=== PATIENT | male | born 1970 | race Caucasian/White ===

== ENCOUNTER 2019-01-09 15:10 | Emergency (ER) | payer BC, OTHER ==
[~2019-01-09] VITALS: Ht 180.3 cm; Wt 97.5 kg
[2019-01-09] MEDS ORDERED: OTEZLA30 MG PO (16:34)
[2019-01-09] MEDS ORDERED: PREDNISONE 20 M20 MG PO (17:29)
[2019-01-09 19:05] VITALS: BP 118/70
== END 2019-01-09 19:05 | disposition home or self-care (01) ==
LOC: ER 15:10
DX: R11.0 Nausea (principal); T78.1XXA Other adverse food reactions, not elsewhere classified, initial encounter; Z91.010 Allergy to peanuts; Z91.018 Allergy to other foods; X58.XXXA Exposure to other specified factors, initial encounter

== ENCOUNTER 2019-02-24 09:14 | Emergency (ER) | payer BC, OTHER ==
[~2019-02-24] VITALS: Ht 180.3 cm; Wt 115.7 kg
[~2019-02-24 09:14] MED LIST: OTEZLA30 MG PO; PREDNISONE 20 M20 MG PO
[2019-02-24] MEDS ORDERED: OTEZLA30 MG PO (09:29)
[2019-02-24] MEDS ORDERED: PREDNISONE 20 M20 MG PO (09:59)
[2019-02-24] MEDS ORDERED: PEPCID20 MG PO (09:59)
[2019-02-24 10:25] VITALS: BP 124/76
== END 2019-02-24 10:26 | disposition home or self-care (01) ==
LOC: ER 09:14
DX: T78.1XXA Other adverse food reactions, not elsewhere classified, initial encounter (principal); T78.3XXA Angioneurotic edema, initial encounter; Z91.018 Allergy to other foods; Z91.010 Allergy to peanuts